=== PATIENT | female | born 1980 | race Caucasian/White ===

== ENCOUNTER → 2022-03-31 | Outpatient (CLI) | payer OTHER | LOC: EXRD 15:00 | DX: E04.2 Nontoxic multinodular goiter (principal) | CPT/HCPCS: 76536 ==

== ENCOUNTER → 2022-05-21 | Outpatient (CLI) | payer OTHER | END | disposition home or self-care (01) | LOC: US 05-15 10:00 | DX: E04.2 Nontoxic multinodular goiter (principal); E07.9 Disorder of thyroid, unspecified; J01.81 Other acute recurrent sinusitis | CPT/HCPCS: 70486 ==